=== PATIENT | female | born 1995 | race Two or more races ===

== ENCOUNTER 2018-05-09 15:59 | Emergency (ER) | payer MEDICAID ==
--- NOTE | 2018-05-09 16:15 | ER Document Report ---
ED General - General Chief Complaint: Psych Problem Stated Complaint: PSYCH EVAL Time Seen by Provider: 05/09/18 16:02 Notes: Patient is a 22-year-old female that presents to the emergency department for chief complaint of confusion, possible psychosis. History provided by patient's family, patient is rather withdrawn at this time. She apparently was outside her apartment complex, and was screaming, talking about the of Ken, more recently she is been going to orthodox and was every single day, she states she has not been eating for the past week, stating that she is fasting for her quaker, she states that she practices Tenriism. She states she cannot determine why she is fasting for any particular reason, she denies suicidal or homicidal ideations. She is difficult to answer questions, she is rather withdrawn and has a flat affect. According to family, this is all new for her in the past week, no history of psychosis or mental illness, and they are not aware of any drug use in the past. Past Medical History: Denies chronic medical conditions Past Surgical History: Denies surgical history Social History: Denies tobacco, alcohol or illicit drug use. Family History: Reviewed and noncontributory for presenting illness Allergies: Reviewed, see documented allergy list. REVIEW OF SYSTEMS: Other than noted above, the 12 point review of systems was reviewed with the patient and were negative, all pertinent findings are included in the HPI. PHYSICAL EXAMINATION: Vital signs reviewed, nursing noted reviewed. GENERAL: Well-appearing, well-nourished and in no acute distress. HEAD: Atraumatic, normocephalic. EYES: Eyes appear normal, sclera anicteric, conjunctiva are normal. ENT: Moist mucous membranes. NECK: Normal range of motion, supple without lymphadenopathy LUNGS: Breath sounds clear to auscultation bilaterally and equal. No wheezes rales or rhonchi. HEART: Heart rate tachycardic, regular rhythm. EXTREMITIES: Nontender, good range of motion, no pitting or edema. NEUROLOGICAL: No focal neurological deficits. Moves all extremities spontaneously Motor and sensory grossly intact on exam. PSYCH: Flat affect, poor eye contact, argumentative at times. SKIN: Warm, Dry, normal turgor, no rashes or lesions noted on exposed skin - Related Data Allergies/Adverse Reactions: No Known Allergies Allergy (Unverified 05/09/18 16:18) Past Medical History - Social History Smoking Status: Never Smoker Family History: Reviewed & Not Pertinent Physical Exam - Vital signs Vitals: Temp Pulse Resp BP Pulse Ox 97.9 F 119 H 16 130/85 H 100 05/09/18 16:17 05/09/18 16:17 05/09/18 16:17 05/09/18 16:17 05/09/18 16:17 Course - Re-evaluation Re-evalutation: Patient seen and examined, vital signs reviewed. Medical screening testing was ordered including bloodwork, EKG, and toxicology. Results of testing were reviewed. Testing demonstrated unremarkable blood work and UA testing negative toxicology. Patient has been stable from a hemodynamic standpoint. At this point I feel that the patient is medically cleared and can be further evaluated from a psychiatric standpoint for final disposition from the emergency department. Patient updated on plan of care. IVC hold placed as the patient was wanted to leave the hospital, I feel she is a threat to herself and possibly others, as she appears to be acutely delusional, and psychotic, and needs further evaluation and management from a psychiatric standpoint, she is medically clear at this point. Laboratory 05/09/18 05/09/18 05/09/18 16:50 16:50 16:50 WBC 8.9 RBC 5.04 Hgb 13.3 Hct 40.7 MCV 81 MCH 26.4 L MCHC 32.7 RDW 14.5 H Plt Count 265 Seg Neutrophils % 79.1 H Lymphocytes % 13.9 Monocytes % 6.4 Eosinophils % 0.1 Basophils % 0.5 Absolute Neutrophils 7.0 Absolute Lymphocytes 1.2 Absolute Monocytes 0.6 Absolute Eosinophils 0.0 Absolute Basophils 0.0 Sodium 142.4 Potassium 3.6 Chloride 106 Carbon Dioxide 23 Anion Gap 13 BUN 17 Creatinine 0.97 Est GFR ( Amer) > 60 Est GFR (Non-Af Amer) > 60 Glucose 85 Calcium 10.0 Total Bilirubin 0.6 Direct Bilirubin 0.2 Neonat Total Bilirubin Not Reportable Neonat Direct Bilirubin Not Reportable Neonat Indirect Bili Not Reportable AST 25 ALT 20 Alkaline Phosphatase 76 Total Protein 7.8 Albumin 4.8 Serum HCG, Qual NEGATIVE Urine Color Urine Appearance Urine pH Ur Specific [place] Urine Protein Urine Glucose (UA) Urine Ketones Urine Blood Urine Nitrite Urine Bilirubin Urine Urobilinogen Ur Leukocyte Esterase Urine WBC (Auto) Urine RBC (Auto) U Hyaline Cast (Auto) Urine Bacteria (Auto) Squamous Epi Cells Auto Urine Mucus (Auto) Urine Ascorbic Acid Salicylates < 1.0 L Urine Opiates Screen Urine Methadone Screen Acetaminophen < 10 L Ur Barbiturates Screen Ur Phencyclidine Scrn Ur Amphetamines Screen U Benzodiazepines Scrn Urine Cocaine Screen U Marijuana (THC) Screen Serum Alcohol < 10 05/09/18 05/09/18 17:00 17:00 WBC RBC Hgb Hct MCV MCH MCHC RDW Plt Count Seg Neutrophils % Lymphocytes % Monocytes % Eosinophils % Basophils % Absolute Neutrophils Absolute Lymphocytes Absolute Monocytes Absolute Eosinophils Absolute Basophils Sodium Potassium Chloride Carbon Dioxide Anion Gap BUN Creatinine Est GFR ( Amer) Est GFR (Non-Af Amer) Glucose Calcium Total Bilirubin Direct Bilirubin Neonat Total Bilirubin Neonat Direct Bilirubin Neonat Indirect Bili AST ALT Alkaline Phosphatase Total Protein Albumin Serum HCG, Qual Urine Color YELLOW Urine Appearance SLIGHTLY-CLOUDY Urine pH 5.0 Ur Specific [place] 1.020 Urine Protein 100 H Urine Glucose (UA) NEGATIVE Urine Ketones 20 H Urine Blood NEGATIVE Urine Nitrite NEGATIVE Urine Bilirubin NEGATIVE Urine Urobilinogen NEGATIVE Ur Leukocyte Esterase NEGATIVE Urine WBC (Auto) 5 Urine RBC (Auto) 2 U Hyaline Cast (Auto) 24 Urine Bacteria (Auto) TRACE Squamous Epi Cells Auto 1 Urine Mucus (Auto) MANY Urine Ascorbic Acid NEGATIVE Salicylates Urine Opiates Screen NEGATIVE Urine Methadone Screen NEGATIVE Acetaminophen Ur Barbiturates Screen NEGATIVE Ur Phencyclidine Scrn NEGATIVE Ur Amphetamines Screen NEGATIVE U Benzodiazepines Scrn NEGATIVE Urine Cocaine Screen NEGATIVE U Marijuana (THC) Screen NEGATIVE Serum Alcohol - Vital Signs Vital signs: Temp Pulse Resp BP Pulse Ox 97.9 F 119 H 16 130/85 H 100 05/09/18 16:17 05/09/18 16:17 05/09/18 16:17 05/09/18 16:17 05/09/18 16:17 - Laboratory Result Diagrams: 05/09/18 16:50 05/09/18 16:50 Laboratory results interpreted by me: 05/09/18 05/09/18 05/09/18 16:50 16:50 17:00 MCH 26.4 L RDW 14.5 H Seg Neutrophils % 79.1 H Urine Protein 100 H Urine Ketones 20 H Salicylates < 1.0 L Acetaminophen < 10 L - EKG Interpretation by Me Additional EKG results interpreted by me: EKG demonstrates sinus tachycardia with a ventricular rate of 112 bpm, normal axis, normal intervals, no evidence of acute ischemia on this EKG. Discharge - Discharge Clinical Impression: Acute psychosis Condition: Stable Disposition: PSYCH HOSP/UNIT
[2018-05-09 17:19] LABS: ABSOLUTE LYMPHOCYTES (AUTO) 1.2 10^3/uL (0.5-4.7); ABSOLUTE MONOCYTES (AUTO) 0.6 10^3/uL (0.1-1.4); BASOPHILS % (AUTO) 0.5 % (0-2); EOSINOPHILS % (AUTO) 0.1 % (0-6); HEMATOCRIT 40.7 % (36.0-47.0); HEMOGLOBIN 13.3 g/dL (12.0-15.5); LYMPHOCYTES % (AUTO) 13.9 % (13-45); MEAN CORPUSCULAR HEMOGLOBIN 26.4 pg (27.0-33.4); MEAN CORPUSCULAR HGB CONC 32.7 g/dL (32.0-36.0); MEAN CORPUSCULAR VOLUME 81 fl (80-97); MONOCYTES % (AUTO) 6.4 % (3-13); PLATELET COUNT 265 10^3/uL (150-450); RED BLOOD COUNT 5.04 10^6/uL (3.72-5.28); RED CELL DISTRIBUTION WIDTH 14.5 % (11.5-14.0); SEGMENTED NEUTROPHILS % (AUTO) 79.1 % (42-78); TOTAL CELLS COUNTED % (AUTO) 100 %; WHITE BLOOD COUNT 8.9 10^3/uL (4.0-10.5)
[2018-05-09 17:21] LABS: APPEARANCE,URINE SLIGHTLY-CLOUDY; BILIRUBIN,URINE NEGATIVE (NEGATIVE); COLOR,URINE YELLOW; GLUCOSE, URINE NEGATIVE (NEGATIVE); KETONES,URINE 20 mg/dL (NEGATIVE); LEUKOCYTE ESTERASE,URINE NEGATIVE (NEGATIVE); NITRITE,URINE NEGATIVE (NEGATIVE); PROTEIN,URINE 100 mg/dL (NEGATIVE); UROBILINOGEN,URINE NEGATIVE mg/dL (<2.0)
[2018-05-09 17:24] LABS: ALANINE AMINOTRANSFERASE 20 U/L (9-52); ALBUMIN 4.8 g/dL (3.5-5.0); ALKALINE PHOSPHATASE 76 U/L (38-126); ANION GAP 13 (5-19); ASPARTATE AMINO TRANSFERASE 25 U/L (14-36); BILIRUBIN,DIRECT 0.2 mg/dL (0.0-0.4); BILIRUBIN,TOTAL 0.6 mg/dL (0.2-1.3); BLOOD UREA NITROGEN 17 mg/dL (7-20); CARBON DIOXIDE 23 mmol/L (22-30); CHLORIDE 106 mmol/L (98-107); GLUCOSE 85 mg/dL (75-110); POTASSIUM 3.6 mmol/L (3.6-5.0); SODIUM 142.4 mmol/L (137-145); TOTAL PROTEIN 7.8 g/dL (6.3-8.2)
[2018-05-09 17:27] LABS: ACETAMINOPHEN < 10 ug/mL (10-30); ALCOHOL < 10 mg/dL (NONE DETECTED); SALICYLATE < 1.0 mg/dL (2.0-20.0)
[2018-05-09 17:35] LABS: URINE AMPHETAMINES SCREEN NEGATIVE; URINE BARBITURATES SCREEN NEGATIVE; URINE BENZODIAZEPINES SCREEN NEGATIVE; URINE COCAINE SCREEN NEGATIVE; URINE MARIJUANA (THC) SCREEN NEGATIVE; URINE METHADONE SCREEN NEGATIVE; URINE PHENCYCLIDINE SCREEN NEGATIVE
--- NOTE | 2018-05-09 19:23 | EKG REPORT ---
SEVERITY:- BORDERLINE ECG - SINUS TACHYCARDIA PROBABLE LEFT ATRIAL ABNORMALITY : Confirmed by: Robert Davidson 09-May-2018 19:23:25
[2018-05-09] MEDS ORDERED: DIPHENHYDRAMINE HCL 50 MG/ML VIAL IM ONE (21:17)
[2018-05-09] MEDS ORDERED: HALOPERIDOL LACTATE INJ 5 MG/1 ML VIAL IM ONE (21:17)
[2018-05-09] MEDS ORDERED: LORAZEPAM INJ 2 MG/1 ML VIAL IM ONE (21:17)
[2018-05-10] MEDS ORDERED: BENZTROPINE MESYLATE 1 MG TABLET PO ONE (10:57)
[2018-05-10] MEDS ORDERED: OLANZAPINE 5 MG TABLET PO ONE (10:57)
[2018-05-10] MEDS: OLANZAPINE 5 MG TABLET PO SCH (11:33)
[2018-05-10] MEDS: BENZTROPINE MESYLATE 1 MG TABLET PO SCH (11:33)
--- NOTE | 2018-05-10 13:41 | PSYCHOLOGICAL NOTE ---
Psych Note - Psych Note Date seen by psych provider: 05/10/18 Time seen by psych provider: 07:30 Psych Note: Reason for consult: Psychosis Contact Permissions: Echo [phone] Patient is a 22 yo female presenting to the ED via EMS for confusion i.e. wandering into other people's apartments and bizarre behavior i.e. walking backwards and screaming about the blood of Gurvinder. She has no prior MH visits to [facility] ED. Patient today reports that she doesn't know why she is here and denies any recollection of circumstances leading up to her arrival in the ED. She relays that she remembers sitting in the ambulance. She admits fasting for the last month and endorses this as normal "something I've done off and on since childhood". She will not put anything impure into her body to include food, medications, or vitamins because "how do you know if it's good ofr you/how can you tell if its not all natural food. She relays that hse has eaten 5 loaves and 2 fishes in the last month. She has eaten per report, at the hospital because she feels hospital food "is safe". Patient only goes to congregation on Tuesday at the [facility]. She denies prior MH IPT or OPT, suicide attempts, SI, HI, or AV/H, drug or ETOH use or legal problems. 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 Patient closes her eyes or looks away frequently Echo reports that patient had a "mental breakdown" was walking backwards saying the blood of Ken and quoting the Bible/using hot sauce as blood/was out of it/sometimes didn't know what was going on for angelika, said her son was sayra Rogers. A friend at her apartment complex reported that she walked into someone's house. Patient went back to congregation in mid-March and her behavioral changes also started at that time. She reported to mom that she was eating 5 loaves of bread and fish in March. She has a Hx of depression and was hospitalized 7 years ago for chewing cuticles off her fingers. Patient is not on medication at this time and not talking about SI or HI. She has a Hx of using THC, cocaine, and pills. Family MH hx of Bipolar and Schizophrenia on maternal side with mother, grandmother and other relatives. Patient is alert and oriented to person, place, and time. She is either unwilling or unable to relay the circumstances leading to her being in the ED. Mood is irritable with congruent affect aeb patient closes her eyes, sighs, looks away when she doesn't want to or can't answer. Patient denies SI, HI, and AV/H, does not appear to be responding to internal stimuli, and no delusions were noted. Conversational speech was minimal and soft. Eye contact was poorly maintained. Thought processes were irrational as patient appeared guarded aeb refusing to answer questions or take medication. Intellectual abilities were estimated within the average range. Attention/concentration was WNL while, insight, judgment, and impulse control were poor. Diagnosis: 297.1 (F22) R/O Delusional Disorder Medication recommendations as per psychiatric provider, Dr. Pulido are as follows: Start Zyprexa 5mg bid Start Cogentin 1mg daily Patient is recommended to maintain IVC due to risk of harm to self or others aeb Patient presents with impaired insight, judgment and impulse control aeb hyperreligiosity, paranoid delusions leading to treatment non-compliance, and confusion. Plan is to stabilize with psychiatric medication and concurrently seek inpatient psychiatric hospitalization. Consulted Dr. Boone in the care and treatment of this patient and ED physician who is in agreement with disposition and recommendation.
--- NOTE | 2018-05-10 20:17 | ER Document Report ---
Doctor's Note Notes: 05/10/18 20:17 The patient did well after the Haldol yesterday evening. She does remain delusional with zoroastrian preoccupation. She was evaluated by us these psychological staff and recommendations were to start Zyprexa 5 mg twice daily and Cogentin 1 mg daily. She will be reevaluated tomorrow morning to see if she still meets IVC criteria after she has been medicated.
--- NOTE | 2018-05-11 07:53 | PSYCHOLOGICAL NOTE ---
Psych Note - Psych Note Date seen by psych provider: 05/11/18 Time seen by psych provider: 07:20 Psych Note: Reason for consult: Psychosis Contact Permissions: Echo [phone] Patient is a 22 year female presenting to the ED via EMS for confusion i.e. wandering into other people's apartments and bizarre behavior i.e. walking backwards and screaming about the blood of Gurvinder. Check in conducted with patient Patient is observed walking around the room (almost as is strolling) and looking at the medical hook ups in the wall. She reports she understands she is currently at [facility] because "I have not been eating or drinking." She denies knowledge of any concerns for her thoughts or behaviours. Clinician notes that patient is very pungent; she agrees to take a shower. Medication recommendations as per psychiatric provider, Dr. Ashok WILLS are as follows: Start Zyprexa 5mg bid Start Cogentin 1mg daily Diagnosis 298.9 (F29) Unspecified psychosis Impression/Plan: Patient is recommended to continue IVC. She continues to present oddly. She states she has no understanding of why she is currently at [facility] other than not eating or drinking. She is observed walking around her room almost if she is on a stroll and looking at different items affixed to the wall in her room. She presents unconcerned for her current placement or situation and does not ask about family or friends, including her child. Patient has been accepted to [facility]; transportation has been requested. Dr. Boone was consulted on the care and management of this patient; attending physician is in agreement with recommendations and disposition.
[2018-05-11] MEDS: OLANZAPINE 5 MG TABLET PO SCH (10:03)
[2018-05-11] MEDS: BENZTROPINE MESYLATE 1 MG TABLET PO SCH (10:03)
[2018-05-11 15:15] VITALS: BP 129/74
== END 2018-05-11 15:05 ==
LOC: EDBD → ER 15:59
DX: F23 Brief psychotic disorder (principal); R41.0 Disorientation, unspecified
CPT/HCPCS: 93005; 36415; 80307 ×4; 84703; 85025; 80053; 81001; 93010; J3490 ×2; J1200; J1630; J2060